=== PATIENT | male | born 1995 | race Caucasian/White ===

== ENCOUNTER 2018-10-09 18:51 | Emergency (ER) | payer BC, OTHER ==
--- NOTE | 2018-10-09 19:06 | EDM.PDOC ---
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 Pain Score (Numeric/FACES): 4 - Related Data Allergies Allergy/AdvReac Type Severity Reaction Status Date / Time sulfamethoxazole Allergy Rash Verified 07/06/16 23:02 [From Bactrim] trimethoprim [From Bactrim] Allergy Rash Verified 07/06/16 23:02 Home Meds: Home Meds Cephalexin [Keflex] 07/06/16 [History] Sulfamethoxazole/Trimethoprim [Bactrim Ds Tablet] 07/06/16 [History] Past Medical History - Past Health History Medical/Surgical History: Denies Medical/Surgical History Musculoskeletal History: Reports: Fracture Neurological History: Reports: None Endocrine/Metabolic History: Reports: None Social & Family History - Family History Family Medical History: Noncontributory - Caffeine Use Caffeine Use: Reports: Soda, Tea Review of Systems - Review of Systems Review Of Systems: ROS reveals no pertinent complaints other than HPI. ED EXAM, GENERAL - Physical Exam Exam: See Below Exam Limited By: No Limitations General Appearance: Alert, WD/WN, Mild Distress, Other (discomfort) Ears: Hearing Grossly Normal Throat/Mouth: Normal Voice, No Airway Compromise Head: Atraumatic Neck: Non-Tender, Full Range of Motion Respiratory/Chest: No Respiratory Distress Cardiovascular: Regular Rate, Rhythm GI/Abdominal: Soft, Non-Tender Extremities: Other (left ankle swollen tender R/P, NV wnl, gait limited to pain) Neurological: Alert, Oriented, Normal Cognition, No Motor/Sensory Deficits Psychiatric: Normal Affect, Normal Mood Skin Exam: Warm, Dry, Normal Color Lymphatic: No Adenopathy ED TRAUMA EXTREMITY PROCEDURES - Splinting Left Lower Extremity Splint Site: left ankle Pre-Procedure NV Status: Normal Post-Procedure NV Status: Normal Splint Material: Fiberglass Splint Design: Sugar Tong Applied & Form Fitted By: Provider Provider Post-Splint Application NV Check: NV Status Normal, Good Position Complications: No Course - Vital Signs Last Recorded V/S: Last Vital Signs Temp 37.7 C 10/09/18 19:04 Pulse 80 10/09/18 19:04 Resp 15 10/09/18 19:04 BP 150/88 H 10/09/18 19:04 Pulse Ox 100 10/09/18 19:04 - Orders/Labs/Meds Orders: Active Orders 24 hr Category Date Time Status Ankle Min 3V Lt [CR] Urgent Exams 10/09/18 19:05 Taken Meds: Medications Discontinued Medications Generic Name Dose Route Start Last Admin Trade Name Freq PRN Reason Stop Dose Admin Hydrocodone Bitart/Acetaminophen 1 tab 10/09/18 19:22 10/09/18 19:30 [place] 325-10 Mg PO 10/09/18 19:23 1 tab ONETIME ONE Administration Departure - Departure Time of Disposition: 19:41 Disposition: Home, Self-Care 01 Condition: Good Clinical Impression: Fracture of ankle - Discharge Information Forms: ED Department Discharge Additional Instructions: 1) elevate leg as much as possible next 48 hours 2) use crutches 3) see clinic Thursday for ORTHOPEDIC REFERRAL rx given; vicodin 5/325mg bid prn x 12 - My Orders Last 24 Hours: My Active Orders 10/09/18 19:05 Ankle Min 3V Lt [CR] Urgent - Assessment/Plan Last 24 Hours: My Active Orders 10/09/18 19:05 Ankle Min 3V Lt [CR] Urgent
[2018-10-09] MEDS ORDERED: Acetaminophen/HYDROcodone 325-10 MG Tab PO ONE (19:22)
[2018-10-09 20:14] VITALS: BP 142/74; PULSE 89
== END 2018-10-09 20:00 | disposition home or self-care (01) ==
LOC: DL.ED 18:51
DX: S82.832A Other fracture of upper and lower end of left fibula, initial encounter for closed fracture (principal); Z88.2 Allergy status to sulfonamides; Z88.1 Allergy status to other antibiotic agents; V00.131A Fall from skateboard, initial encounter
CPT/HCPCS: 29515; 73610; 99283; A9270; 29505